=== PATIENT | male | born 1985 | race Two or more races ===

== ENCOUNTER 2017-08-01 09:22 | Emergency (ER) | payer MEDICAID ==
[~2017-08-01] VITALS: Ht 172.7 cm; Wt 100.0 kg
[2017-08-01 09:30] VITALS: BP 130/74
[2017-08-01] MEDS ORDERED: COLC0.6T69 PO (09:45)
[2017-08-01] MEDS ORDERED: triamcinolone acetonide 40mg/ml inj IM ONE (09:45)
== END 2017-08-01 10:05 | disposition home or self-care (01) ==
LOC: ER 09:22
DX: M25.572 Pain in left ankle and joints of left foot (principal)
CPT/HCPCS: 96372; 99283; J3301

== ENCOUNTER 2017-09-10 05:06 | Emergency (ER) | payer MEDICAID ==
[~2017-09-10] VITALS: Ht 172.7 cm; Wt 122.4 kg
[~2017-09-10 05:06] MED LIST: COLC0.6T69 PO
[2017-09-10 05:08] VITALS: BP 144/92
[2017-09-10] MEDS ORDERED: ibuprofen tablet 400 MG TABLET PO ONE (05:20)
[2017-09-10] MEDS ORDERED: IBUP-1984 PO (05:49)
== END 2017-09-10 06:11 | disposition home or self-care (01) ==
LOC: ER 05:06
DX: M77.32 Calcaneal spur, left foot (principal)
CPT/HCPCS: 73630; 99284

== ENCOUNTER 2018-12-19 14:11 | Emergency (ER) | payer MEDICAID ==
[~2018-12-19] VITALS: Ht 172.7 cm; Wt 125.7 kg
[~2018-12-19 14:11] MED LIST changes: +LIDOcaine 1% W/epiNEPHrine 1:100,000 20ml vial ONE
[2018-12-19] MEDS ORDERED: DOXYCYCLINE 100MG CAPSULE PO STA (14:49)
[2018-12-19] MEDS ORDERED: TETanus/Pertussis (Acell)/Diphther VAC/PF (Tdap-Adult) 0.5ml syringe IM ONE (14:50)
[2018-12-19] MEDS ORDERED: fluconazole 100mg tablet PO ONE (14:50)
[2018-12-19] MEDS ORDERED: HYDROcodone/acetaminophen 5mg/325mg tablet PO ONE (14:50)
[2018-12-19] MEDS ORDERED: cephalexin 250mg capsule PO ONE (14:50)
[2018-12-19] MEDS ORDERED: ondansetron 4mg rapidly disintigrating tab PO ONE (14:50)
[2018-12-19] MEDS ORDERED: CEPH250T PO (15:29)
[2018-12-19] MEDS ORDERED: FLUC200T PO (15:29)
[2018-12-19] MEDS ORDERED: ONDA8TAB6 PO (15:29)
[2018-12-19] MEDS ORDERED: DOXY100C43 PO (15:29)
[2018-12-19] MEDS ORDERED: bacitracin 15gm ointment TP ONE (15:35)
[2018-12-19 15:54] VITALS: BP 146/77
== END 2018-12-19 15:56 | disposition home or self-care (01) ==
LOC: ER 14:11
DX: L02.211 Cutaneous abscess of abdominal wall (principal); M10.9 Gout, unspecified; Z79.1 Long term (current) use of non-steroidal anti-inflammatories (NSAID); Z79.899 Other long term (current) drug therapy
CPT/HCPCS: 10060; 90471; 90715; 99284; J2405

== ENCOUNTER 2019-06-17 12:44 | Emergency (ER) | payer MEDICAID, OTHER ==
[~2019-06-17] VITALS: Ht 172.7 cm; Wt 126.0 kg
[~2019-06-17 12:44] MED LIST changes: +FLUC200T PO; -LIDOcaine 1% W/epiNEPHrine 1:100,000 20ml vial ONE; +ONDA8TAB6 PO
[2019-06-17 12:55] VITALS: BP 150/88
[2019-06-17 13:28] LABS: CLARITY,URINE CLOUDY (Clear); COLOR,URINE YELLOW (Yellow); GLUCOSE, URINE NEGATIVE (Neg); KETONES,URINE NEGATIVE (Neg); LEUKOCYTE ESTERASE ,URINE LARGE (Neg); NITRITES, URINE NEGATIVE (Neg); OCCULT BLOOD,URINE LARGE (Neg); PROTEIN,URINE 30 mg/dl (Neg); UA COLLECTION TYPE CLN CATCH MIDSTREAM; UROBILINOGEN,URINE 0.2 E.U/dL (0.2-1.0)
[2019-06-17 13:33] LABS: MUCUS STRANDS FEW /LPF (Neg); SQUAMOUS EPITHELIAL CELL,UR FEW /LPF (FEW)
[2019-06-17 13:34] LABS: BACTERIA,URINE 2+ /HPF (Neg); WBC CLUMPS,URINE MANY /HPF (NEGATIVE); WBC,URINE TNTC /HPF (0-4)
[2019-06-17 14:28] LABS: BASOPHILS % (AUTO) 0.2 % (0-1); EOSINOPHILS # (AUTO) 0.2 X10'3 (0-0.9); EOSINOPHILS % (AUTO) 1.6 % (0-6); HEMATOCRIT 42.2 % (42.0-52.0); LYMPHOCYTES # (AUTO) 1.6 X10'3 (1.1-4.8); LYMPHOCYTES % (AUTO) 14.5 % (21-51); MEAN CORPUSCULAR HEMOGLOBIN 28.6 PG (27.0-31.0); MEAN CORPUSCULAR HGB CONC 33.3 g/dL (33.0-36.5); MEAN CORPUSCULAR VOLUME 85.7 FL (78-98); MEAN PLATELET VOLUME 7.5 FL (7.4-10.4); MONOCYTES # (AUTO) 0.9 X10'3 (0-0.9); NEUTROPHILS # (AUTO) 8.6 X10'3 (1.8-7.7); NEUTROPHILS % (AUTO) 75.7 % (42-75); PLATELET COUNT 200 X10'3 (140-440); RED BLOOD COUNT 4.92 X10'6 (4.70-6.10); RED CELL DISTRIBUTION WIDTH 13.2 % (11.5-14.5); WHITE BLOOD COUNT 11.3 X10'3 (4.5-11.0)
[2019-06-17 14:43] LABS: ALANINE AMINOTRANSFERASE 23 U/L (12-78); ALBUMIN 3.8 G/DL (3.4-5.0); ALKALINE PHOSPHATASE 74 IU/L (46-116); ANION GAP 6 (8-16); ASPARTATE AMINO TRANSFERASE 17 U/L (10-37); BILIRUBIN,TOTAL 0.8 MG/DL (0.1-1.0); BLOOD UREA NITROGEN 8 MG/DL (7-18); CALCIUM 8.6 MG/DL (8.5-10.1); CHLORIDE 102 MMOL/L (99-107); GLUCOSE 96 MG/DL (70-104); POTASSIUM 3.8 MMOL/L (3.5-5.1); SODIUM 136 MMOL/L (135-145); TOTAL CARBON DIOXIDE 28.2 MMOL/L (24-32); TOTAL PROTEIN 7.7 G/DL (6.4-8.2); eGFR > 90 ML/MIN
[2019-06-17] MEDS ORDERED: PHEN-824 PO (15:07)
[2019-06-17] MEDS ORDERED: CEPH500C5 PO (15:07)
== END 2019-06-17 15:25 | disposition home or self-care (01) ==
LOC: ER 12:44
DX: N39.0 Urinary tract infection, site not specified (principal); R31.9 Hematuria, unspecified; R11.2 Nausea with vomiting, unspecified; Z79.2 Long term (current) use of antibiotics; Z79.899 Other long term (current) drug therapy
CPT/HCPCS: 36415; 74176; 80053; 81001; 85025; 87088; 99284

== ENCOUNTER 2021-11-14 11:57 | Emergency (ER) | payer MEDICAID ==
[~2021-11-14] VITALS: Ht 172.7 cm; Wt 110.0 kg
[~2021-11-14 11:57] MED LIST changes: -COLC0.6T69 PO; +COLC0.6T72 PO; +PHEN-824 PO
[2021-11-14 12:01] VITALS: BP 169/103
[2021-11-14] MEDS ORDERED: amox tr/potassium clavulanate 875/125mg TAB PO ONE (13:15)
[2021-11-14] MEDS ORDERED: AMOX-117 PO (13:29)
== END 2021-11-14 14:49 | disposition home or self-care (01) ==
LOC: ER 11:59
DX: K08.89 Other specified disorders of teeth and supporting structures (principal)
CPT/HCPCS: 99283

== ENCOUNTER 2022-08-15 03:40 | Emergency (ER) | payer MEDICAID ==
[~2022-08-15] VITALS: Ht 172.7 cm; Wt 100.0 kg
[2022-08-15] MEDS ORDERED: AMOX500C2 PO (10:42)
[2022-08-15] MEDS ORDERED: ALBU8HFA PO (10:43)
[2022-08-15] MEDS ORDERED: amoxicillin 250mg capsule PO ONE (10:45)
[2022-08-15 11:09] VITALS: BP 134/83
== END 2022-08-15 11:12 | disposition home or self-care (01) ==
LOC: ER 03:41
DX: J18.9 Pneumonia, unspecified organism (principal); Z20.822 Contact with and (suspected) exposure to COVID-19; M10.9 Gout, unspecified; Z79.899 Other long term (current) drug therapy
CPT/HCPCS: 71046; 87081; 87502; 87503; 87811; 87880; 93005; 99285

== ENCOUNTER 2022-09-05 07:06 | Inpatient (IN) | payer MEDICAID ==
[~2022-09-05] VITALS: Ht 172.7 cm; Wt 152.4 kg
[~2022-09-05 07:06] MED LIST changes: +ALBU8HFA PO
[2022-09-05] MEDS ORDERED: ipratropium/albuterol 3ml nebule NEB ONE (07:45)
[2022-09-05] MEDS ORDERED: albuterol 2.5 MG/3 ML nebule NEB ONE (07:45)
--- NOTE | 2022-09-05 07:49 | NUR ---
LUCÍA MORILLO PAGE RT FOR RT TX.
[2022-09-05 08:14] LABS: ABG BASE EXCESS 0.5 mmol/L (-2.0-2.0); ABG HCO3 24.7 mmol/L (22.0-26.0); ABG OXYGEN SATURATION 93.8 % (94-97); ABG PCO2 (T) 37.7 mmHg (35.0-48.0); ABG PO2 (T) 70.8 mmHg (75.0-100.0); ALLEN'S TEST POSITIVE; FCOHb 0.8 % (0.0-3.9); FMetHb 0.2 % (0.0-1.5); FO2Hb 92.9 % (94-97); PATIENT TEMPERATURE 36.7; TOTAL HEMOGLOBIN 12.8 G/dl (14.0-17.9)
[2022-09-05 08:16] LABS: BASOPHILS % (AUTO) 0.3 % (0-1); EOSINOPHILS # (AUTO) 0.2 X10'3 (0-0.9); EOSINOPHILS % (AUTO) 3.1 % (0-6); HEMATOCRIT 36.8 % (42.0-52.0); LYMPHOCYTES # (AUTO) 1.5 X10'3 (1.1-4.8); LYMPHOCYTES % (AUTO) 22.9 % (21-51); MEAN CORPUSCULAR HGB CONC 32.7 g/dL (33.0-36.5); MEAN CORPUSCULAR VOLUME 88.8 FL (78-98); MEAN PLATELET VOLUME 8.1 FL (7.4-10.4); MONOCYTES # (AUTO) 0.5 X10'3 (0-0.9); MONOCYTES % (AUTO) 8.2 % (2-12); NEUTROPHILS # (AUTO) 4.3 X10'3 (1.8-7.7); NEUTROPHILS % (AUTO) 65.5 % (42-75); PLATELET COUNT 220 X10'3 (140-440); RED BLOOD COUNT 4.14 X10'6 (4.70-6.10); RED CELL DISTRIBUTION WIDTH 14.9 % (11.5-14.5); WHITE BLOOD COUNT 6.6 X10'3 (4.5-11.0)
[2022-09-05 08:25] LABS: ALANINE AMINOTRANSFERASE 55 U/L (12-78); ALKALINE PHOSPHATASE 81 IU/L (46-116); ANION GAP 8 (8-16); ASPARTATE AMINO TRANSFERASE 58 U/L (10-37); BILIRUBIN,TOTAL 1.1 MG/DL (0.1-1.0); BLOOD UREA NITROGEN 8 MG/DL (7-18); BUN/CREATININE RATIO 6.7 (10.0-20.0); CALCIUM 8.6 MG/DL (8.5-10.1); CHLORIDE 102 MMOL/L (99-107); CREATININE 1.19 MG/DL (0.60-1.10); GLUCOSE 167 MG/DL (70-104); POTASSIUM 3.9 MMOL/L (3.5-5.1); SODIUM 138 MMOL/L (135-145); TOTAL CARBON DIOXIDE 27.8 MMOL/L (24-32); TOTAL PROTEIN 5.9 G/DL (6.4-8.2); eGFR 83 ML/MIN
[2022-09-05] MEDS ORDERED: furosemide 10 MG/1 ML 10ml inj IV ONE ×2 (08:25→20:00)
--- NOTE | 2022-09-05 08:36 | NUR ---
LAB NOTIFIED RN THAT TROP ARE 224. RN NOTIFIED DR ABDI. NO ORDS RECD.
--- NOTE | 2022-09-05 09:23 | NUR ---
RN NOTIFIED DR ABDI THAT LAB REPORTED TROP INCREASED TO 240
[2022-09-05] MEDS ORDERED: magnesium 2GM in 50ml NS 50 ML IV PRN ×2 (10:10→10:15)
[2022-09-05] MEDS ORDERED: potassium Cl 40MEQ/1/2NS 520ml 520 ML IV PRN ×2 (10:10→10:15)
[2022-09-05] MEDS ORDERED: magnesium 4gm in 100ml NS 100 ML IV PRN ×2 (10:10→10:15)
[2022-09-05] MEDS ORDERED: potassium Cl 20 mEq SR tablet PO PRN ×4 (10:10→10:15)
[2022-09-05] MEDS ORDERED: magnesium Cl slow-release 64mg tablet PO PRN ×2 (10:10→10:15)
[2022-09-05] MEDS ORDERED: acetaminophen 325mg tablet PO PRN (10:15)
[2022-09-05] MEDS ORDERED: ondansetron/PF 4mg/2ml inj IV PRN (10:15)
--- NOTE | 2022-09-05 10:36 | NUR ---
RN NOTIFIED DR ABDI THAT TROP ARE NOW 270
--- NOTE | 2022-09-05 11:41 | NUR ---
rn collected urine and sent it lab.
--- NOTE | 2022-09-05 12:12 | NUR ---
RN CALLED PT SPOUSE FOR HIM AND PROVIDED HIM A PHONE.
[2022-09-05 12:15] LABS: URINE AMPHETAMINE SCREEN NEGATIVE (Neg); URINE BARBITUATE SCREEN NEGATIVE (Neg); URINE BENZODIAZEPINES SCREEN NEGATIVE (Neg); URINE CANNABINOID SCREEN POSITIVE (Neg); URINE COCAINE SCREEN NEGATIVE (Neg); URINE METHADONE SCREEN NEGATIVE (Neg); URINE OPIATE SCREEN NEGATIVE (Neg); URINE PHENCYCLIDINE SCREEN NEGATIVE (Neg)
[2022-09-05] MEDS ORDERED: PERFLUTREN PROTEIN-A MICROSPHR (Optison) 0.22 MG/ML 3ML VIAL IV ONE (13:40)
[2022-09-05] MEDS ORDERED: furosemide 40mg/4ml inj IV ONE (14:00)
[2022-09-05 15:00] VITALS: BP 126/66
[2022-09-05 18:00] VITALS: BP 123/89
--- NOTE | 2022-09-05 18:04 | NUR ---
Problems reprioritized. Patient report given, questions answered & plan of care reviewed with CARLOS EDUARDO Diego.
[2022-09-05] MEDS ORDERED: ASCO500C17 PO (18:29)
[2022-09-05] MEDS ORDERED: ALBU1POW2 IH (18:29)
[2022-09-05] MEDS ORDERED: ZINC100T2 PO (18:30)
[2022-09-05 18:56] LABS: D-DIMER 0.45 MG/L FEU (0-0.50)
[2022-09-05] MEDS: heparin, porcine 5000 units/ml vial SQ SCH (19:51)
[2022-09-05] MEDS: carvedilol 6.25mg tablet PO SCH (19:51)
[2022-09-05] MEDS: K and/or MAG REPLACEMENT MC SCH ×2 (20:00)
[2022-09-05 22:00] VITALS: BP 140/93
[2022-09-06 02:00] VITALS: BP 140/85
--- NOTE | 2022-09-06 02:39 | NUR ---
INSTRUMENTS SALES REPRESENTATIVE documentation: I have reviewed and agree with all interventions, assessments performed and documented by Brandie THIBODEAUX.
[2022-09-06 06:00] VITALS: BP 157/107
[2022-09-06] MEDS: carvedilol 6.25mg tablet PO SCH ×2 (07:08→20:08)
[2022-09-06] MEDS: heparin, porcine 5000 units/ml vial SQ SCH ×2 (07:11→20:08)
[2022-09-06 08:00] LABS: BASOPHILS % (AUTO) 0.6 % (0-1); EOSINOPHILS # (AUTO) 0.3 X10'3 (0-0.9); HEMATOCRIT 39.9 % (42.0-52.0); HEMOGLOBIN 13.1 g/dl (14.0-17.9); LYMPHOCYTES # (AUTO) 1.5 X10'3 (1.1-4.8); MEAN CORPUSCULAR HGB CONC 32.8 g/dL (33.0-36.5); MEAN CORPUSCULAR VOLUME 88.6 FL (78-98); MEAN PLATELET VOLUME 8.8 FL (7.4-10.4); MONOCYTES # (AUTO) 0.5 X10'3 (0-0.9); MONOCYTES % (AUTO) 7.4 % (2-12); NEUTROPHILS # (AUTO) 4.5 X10'3 (1.8-7.7); PLATELET COUNT 232 X10'3 (140-440); RED BLOOD COUNT 4.51 X10'6 (4.70-6.10); RED CELL DISTRIBUTION WIDTH 14.7 % (11.5-14.5); WHITE BLOOD COUNT 6.8 X10'3 (4.5-11.0)
[2022-09-06] MEDS: K and/or MAG REPLACEMENT MC SCH ×4 (08:00→20:19)
--- NOTE | 2022-09-06 08:00 | NUR ---
Paged Page Sent PAGER ID: [phone] MESSAGE: [id number]- Kristine Pt has SOB, inspiratory wheezing, &bilat lower base crackles. SPO2 94%. Pt reported he breathed much better after Lasix administration. EF 20%. Annika SUPERVISOR LIVESTOCK YARD recommended diuresis. Would you consider scheduled Lasix? Simon LAIN
[2022-09-06 08:09] LABS: ALBUMIN 3.2 G/DL (3.4-5.0); ANION GAP 13 (8-16); BLOOD UREA NITROGEN 15 MG/DL (7-18); BUN/CREATININE RATIO 12.7 (10.0-20.0); CHLORIDE 102 MMOL/L (99-107); CHOL/HDL RATIO 3.2 (0.00-4.99); CHOLESTEROL 123 MG/DL (0-200); CREATININE 1.18 MG/DL (0.60-1.10); GLUCOSE 112 MG/DL (70-104); HDL CHOLESTEROL 39 MG/DL (35-60); LDL CHOLESTEROL 79 MG/DL (50-100); MAGNESIUM 2.1 MG/DL (1.5-2.4); SODIUM 140 MMOL/L (135-145); TOTAL CARBON DIOXIDE 25.3 MMOL/L (24-32); TRIGLYCERIDES 56 MG/DL (20-135); eGFR 84 ML/MIN
[2022-09-06] MEDS: furosemide 40mg/4ml inj IV SCH ×2 (10:36→19:52)
[2022-09-06 11:00] VITALS: BP 140/104
[2022-09-06] MEDS ORDERED: lisinopril 5mg tablet PO SCH (11:25)
[2022-09-06] MEDS: sacubitril/valsartan 24mg-26mg tablet PO SCH ×2 (12:57→20:07)
[2022-09-06] MEDS: levalbuterol 0.63mg/3ml nebule IH SCH ×2 (14:36→20:12)
--- NOTE | 2022-09-06 14:57 | NUR ---
OFFICE MACHINES TEACHER documentation: I have reviewed and agree with all interventions, assessments performed and documented by JADEN BAIRD LVN.
[2022-09-06 15:00] VITALS: BP 130/88
--- NOTE | 2022-09-06 15:49 | NUR ---
Paged Page Sent PAGER ID: [phone] MESSAGE: [id number]- [email or web address]. Pt has a family emergency and would like to go home. Dr. Timmons came and assessed patient. Pt asked if there is any chance he can be discharged ANTONIO? Thanks. Simon Parham LVN
--- NOTE | 2022-09-06 16:01 | NUR ---
Dr. Chan advised contract technical writer, pt is not cleared to be sent home and if he desires to leave, he will need to leave AMA. Blood Bank Laboratory Professional informed patient. He stated he will be thinking and will let contract technical writer know. Blood Bank Laboratory Professional will follow up.
[2022-09-06 18:00] VITALS: BP 141/95
--- NOTE | 2022-09-06 18:26 | NUR ---
Problems reprioritized. Patient report given, questions answered & plan of care reviewed with Janelle THIBODEAUX.
[2022-09-06] MEDS: methylPREDNISolone sod succ/PF 40mg inj. IV SCH (19:52)
[2022-09-06 22:00] VITALS: BP 122/54
--- NOTE | 2022-09-07 01:41 | NUR ---
Agree with Brandie THIBODEAUX except where I documented my findings.
[2022-09-07 02:00] VITALS: BP 107/74
[2022-09-07] MEDS: levalbuterol 0.63mg/3ml nebule IH SCH ×2 (02:30→08:22)
[2022-09-07 06:00] VITALS: BP 111/92
[2022-09-07 06:27] LABS: ALBUMIN 3.4 G/DL (3.4-5.0); ANION GAP 10 (8-16); BASOPHILS % (AUTO) 0.4 % (0-1); BLOOD UREA NITROGEN 21 MG/DL (7-18); BUN/CREATININE RATIO 20.8 (10.0-20.0); CALCIUM 8.8 MG/DL (8.5-10.1); CHLORIDE 102 MMOL/L (99-107); CREATININE 1.01 MG/DL (0.60-1.10); EOSINOPHILS % (AUTO) 0 % (0-6); GLUCOSE 157 MG/DL (70-104); HEMATOCRIT 44.9 % (42.0-52.0); HEMOGLOBIN 14.5 g/dl (14.0-17.9); LYMPHOCYTES # (AUTO) 0.5 X10'3 (1.1-4.8); MAGNESIUM 2.1 MG/DL (1.5-2.4); MEAN CORPUSCULAR HEMOGLOBIN 28.7 PG (27.0-31.0); MEAN CORPUSCULAR HGB CONC 32.3 g/dL (33.0-36.5); MEAN CORPUSCULAR VOLUME 88.8 FL (78-98); MEAN PLATELET VOLUME 9.1 FL (7.4-10.4); MONOCYTES # (AUTO) 0.2 X10'3 (0-0.9); MONOCYTES % (AUTO) 3.9 % (2-12); NEUTROPHILS # (AUTO) 4.6 X10'3 (1.8-7.7); NEUTROPHILS % (AUTO) 85.7 % (42-75); PLATELET COUNT 292 X10'3 (140-440); POTASSIUM 4.7 MMOL/L (3.5-5.1); RED BLOOD COUNT 5.05 X10'6 (4.70-6.10); RED CELL DISTRIBUTION WIDTH 14.8 % (11.5-14.5); SODIUM 134 MMOL/L (135-145); TOTAL CARBON DIOXIDE 22.3 MMOL/L (24-32); WHITE BLOOD COUNT 5.4 X10'3 (4.5-11.0); eGFR > 90 ML/MIN
--- NOTE | 2022-09-07 06:30 | NUR ---
Patient in room PCU 3012. I have received report from Janelle THIBODEAUX and had the opportunity to ask questions and assume patient care.
[2022-09-07] MEDS: sacubitril/valsartan 24mg-26mg tablet PO SCH (07:30)
[2022-09-07] MEDS: carvedilol 6.25mg tablet PO SCH (07:30)
[2022-09-07] MEDS: heparin, porcine 5000 units/ml vial SQ SCH (07:34)
[2022-09-07] MEDS: K and/or MAG REPLACEMENT MC SCH ×2 (07:51→07:52)
[2022-09-07] MEDS ORDERED: spironolactone 25 MG tablet PO SCH (08:30)
[2022-09-07 08:42] VITALS: BP_SYST 111
[2022-09-07] MEDS: methylPREDNISolone sod succ/PF 40mg inj. IV SCH (09:08)
[2022-09-07] MEDS: furosemide 40mg/4ml inj IV SCH (09:08)
--- NOTE | 2022-09-07 09:20 | NUR ---
Pt was observed heading toward elevators. Motor Mechanic inquired if patient was leaving. Pt stated he has a family emergency and he needs to leave. Motor Mechanic reinforced from yesterday's instruction, Pt will be leaving AMA. He verbalized understanding. Pt PIV discontinued. Pt left telebox on bed. Pt initially refused to sign paperwork. Pt educated on written instruction on AMA form. Pt refused to sign paperwork. RN and GRANULATING MACHINE OPERATOR provided witness signature on AMA form. Pt was encouraged to follow up with PCP. He verbalized understanding. Addendum: 09/07/22 at 1017 by Simon Parham LVN Late entry: was paged at 0922hrs
== END 2022-09-07 09:22 | disposition left against medical advice (07) | DRG 140 ==
LOC: ER 07:07 → ED HOLD 10:12 → PCU 3S 14:42
PROVIDERS: ADMIT Internal Medicine; ATTEND Internal Medicine
DX: J44.1 Chronic obstructive pulmonary disease with (acute) exacerbation (principal); I50.23 Acute on chronic systolic (congestive) heart failure; I21.A1 Myocardial infarction type 2; I42.0 Dilated cardiomyopathy; I42.6 Alcoholic cardiomyopathy; F12.90 Cannabis use, unspecified, uncomplicated; M10.9 Gout, unspecified; Z53.29 Procedure and treatment not carried out because of patient's decision for other reasons; Z80.7 Family history of other malignant neoplasms of lymphoid, hematopoietic and related tissues; Z79.899 Other long term (current) drug therapy
CPT/HCPCS: 36415; 36600; 71045; 80048; 80053; 80061; 80305; 82803; 83735; 83880; 84145; 84484; 85018; 85025; 85379; 93306; 94640; 94760; 99285; G0378; J1644; J1940; J2920; J7614

== ENCOUNTER 2022-09-25 21:56 | Inpatient (IN) | payer MEDICAID ==
[~2022-09-25] VITALS: Ht 175.3 cm; Wt 109.1 kg
[~2022-09-25 21:56] MED LIST changes: +ALBU1POW2 IH; -ALBU8HFA PO; +ASCO500C17 PO; -COLC0.6T72 PO; -FLUC200T PO; -ONDA8TAB6 PO; -PHEN-824 PO; +ZINC100T2 PO
[2022-09-25 22:20] LABS: BASOPHILS % (AUTO) 0.6 % (0-1); EOSINOPHILS # (AUTO) 0.2 X10'3 (0-0.9); EOSINOPHILS % (AUTO) 3.1 % (0-6); HEMATOCRIT 38.7 % (42.0-52.0); HEMOGLOBIN 12.6 g/dl (14.0-17.9); LYMPHOCYTES # (AUTO) 1.8 X10'3 (1.1-4.8); LYMPHOCYTES % (AUTO) 25.5 % (21-51); MEAN CORPUSCULAR HEMOGLOBIN 28.5 PG (27.0-31.0); MEAN CORPUSCULAR HGB CONC 32.7 g/dL (33.0-36.5); MEAN CORPUSCULAR VOLUME 87.2 FL (78-98); MEAN PLATELET VOLUME 8.2 FL (7.4-10.4); MONOCYTES # (AUTO) 0.5 X10'3 (0-0.9); MONOCYTES % (AUTO) 7.2 % (2-12); NEUTROPHILS # (AUTO) 4.5 X10'3 (1.8-7.7); NEUTROPHILS % (AUTO) 63.6 % (42-75); PLATELET COUNT 223 X10'3 (140-440); RED BLOOD COUNT 4.44 X10'6 (4.70-6.10); RED CELL DISTRIBUTION WIDTH 14.9 % (11.5-14.5)
[2022-09-25 22:33] LABS: ALANINE AMINOTRANSFERASE 40 U/L (12-78); ALBUMIN 3.3 G/DL (3.4-5.0); ALBUMIN/GLOBULIN RATIO 1.2 (1.1-1.5); ALKALINE PHOSPHATASE 70 IU/L (46-116); ANION GAP 4 (8-16); ASPARTATE AMINO TRANSFERASE 31 U/L (10-37); BILIRUBIN,TOTAL 1.3 MG/DL (0.1-1.0); BLOOD UREA NITROGEN 16 MG/DL (7-18); CALCIUM 8.7 MG/DL (8.5-10.1); CHLORIDE 105 MMOL/L (99-107); CREATININE 1.33 MG/DL (0.60-1.10); GLUCOSE 179 MG/DL (70-104); POTASSIUM 3.8 MMOL/L (3.5-5.1); SODIUM 140 MMOL/L (135-145); TOTAL CARBON DIOXIDE 31.3 MMOL/L (24-32); eGFR 73 ML/MIN
[2022-09-26] MEDS ORDERED: furosemide 10 MG/1 ML 10ml inj IV ONE (00:35)
[2022-09-26] MEDS ORDERED: potassium Cl 40MEQ/1/2NS 520ml 520 ML IV PRN (04:15)
[2022-09-26] MEDS ORDERED: magnesium 2GM in 50ml NS 50 ML IV PRN (04:15)
[2022-09-26] MEDS ORDERED: magnesium Cl slow-release 64mg tablet PO PRN (04:15)
[2022-09-26] MEDS ORDERED: mag hydrox/Alum hydrox/simeth 30ml oral suspension PO PRN (04:15)
[2022-09-26] MEDS ORDERED: magnesium 4gm in 100ml NS 100 ML IV PRN (04:15)
[2022-09-26] MEDS ORDERED: acetaminophen 325mg tablet PO PRN (04:15)
[2022-09-26] MEDS ORDERED: ondansetron/PF 4mg/2ml inj IV PRN (04:15)
[2022-09-26] MEDS ORDERED: magnesium hydroxide 30ml (MOM) UD suspension PO PRN (04:15)
[2022-09-26] MEDS ORDERED: potassium Cl 20 mEq SR tablet PO PRN ×2 (04:15)
[2022-09-26] MEDS: K and/or MAG REPLACEMENT MC SCH ×2 (08:00→20:00)
[2022-09-26] MEDS: sacubitril/valsartan 24mg-26mg tablet PO SCH ×2 (08:00→20:12)
[2022-09-26] MEDS: heparin, porcine 5000 units/ml vial SQ SCH ×2 (08:00→20:00)
[2022-09-26 08:27] LABS: POTASSIUM 3.9 MMOL/L (3.5-5.1)
[2022-09-26] MEDS: docusate sod 100mg capsule PO SCH ×2 (09:26→20:00)
[2022-09-26] MEDS: carvedilol 6.25mg tablet PO SCH ×2 (09:26→20:13)
[2022-09-26] MEDS: furosemide 10 MG/1 ML 10ml inj IV SCH ×2 (09:26→20:14)
[2022-09-26 12:35] VITALS: BP 131/82
[2022-09-26 15:00] VITALS: BP 131/77
[2022-09-26 18:30] VITALS: BP 156/90
[2022-09-26 22:00] VITALS: BP 129/75
[2022-09-27 02:00] VITALS: BP 125/82
--- NOTE | 2022-09-27 06:19 | NUR ---
Problems reprioritized. Patient report given, questions answered & plan of care reviewed with Rashmi CASTREJON.
--- NOTE | 2022-09-27 06:25 | NUR ---
Patient in room PCU 3019. I have received report from CHRISTEN CASTREJON and had the opportunity to ask questions and assume patient care.
[2022-09-27 07:16] VITALS: BP 104/72
[2022-09-27 07:40] LABS: BASOPHILS % (AUTO) 0.4 % (0-1); EOSINOPHILS # (AUTO) 0.3 X10'3 (0-0.9); EOSINOPHILS % (AUTO) 4.7 % (0-6); HEMATOCRIT 40.9 % (42.0-52.0); HEMOGLOBIN 13.4 g/dl (14.0-17.9); LYMPHOCYTES # (AUTO) 1.3 X10'3 (1.1-4.8); MEAN CORPUSCULAR HEMOGLOBIN 28.4 PG (27.0-31.0); MEAN CORPUSCULAR HGB CONC 32.8 g/dL (33.0-36.5); MEAN CORPUSCULAR VOLUME 86.7 FL (78-98); MEAN PLATELET VOLUME 8.6 FL (7.4-10.4); MONOCYTES # (AUTO) 0.5 X10'3 (0-0.9); MONOCYTES % (AUTO) 9.4 % (2-12); NEUTROPHILS # (AUTO) 3.6 X10'3 (1.8-7.7); NEUTROPHILS % (AUTO) 62.5 % (42-75); PLATELET COUNT 236 X10'3 (140-440); RED BLOOD COUNT 4.71 X10'6 (4.70-6.10); RED CELL DISTRIBUTION WIDTH 14.7 % (11.5-14.5); WHITE BLOOD COUNT 5.7 X10'3 (4.5-11.0)
[2022-09-27] MEDS: K and/or MAG REPLACEMENT MC SCH (08:00)
[2022-09-27] MEDS: heparin, porcine 5000 units/ml vial SQ SCH (08:00)
[2022-09-27] MEDS: carvedilol 6.25mg tablet PO SCH (08:00)
[2022-09-27] MEDS: docusate sod 100mg capsule PO SCH (08:00)
[2022-09-27 08:38] LABS: ALANINE AMINOTRANSFERASE 41 U/L (12-78); ALBUMIN/GLOBULIN RATIO 1.2 (1.1-1.5); ALKALINE PHOSPHATASE 70 IU/L (46-116); ANION GAP 6 (8-16); ASPARTATE AMINO TRANSFERASE 24 U/L (10-37); BILIRUBIN,TOTAL 1.3 MG/DL (0.1-1.0); BLOOD UREA NITROGEN 14 MG/DL (7-18); BUN/CREATININE RATIO 12.8 (10.0-20.0); CALCIUM 8.6 MG/DL (8.5-10.1); CHLORIDE 105 MMOL/L (99-107); CREATININE 1.09 MG/DL (0.60-1.10); GLUCOSE 126 MG/DL (70-104); POTASSIUM 4.3 MMOL/L (3.5-5.1); SODIUM 141 MMOL/L (135-145); TOTAL CARBON DIOXIDE 29.9 MMOL/L (24-32); TOTAL PROTEIN 5.6 G/DL (6.4-8.2); eGFR > 90 ML/MIN
[2022-09-27] MEDS: sacubitril/valsartan 24mg-26mg tablet PO SCH (08:44)
[2022-09-27] MEDS: furosemide 10 MG/1 ML 10ml inj IV SCH (08:44)
--- NOTE | 2022-09-27 09:05 | NUR ---
pt refused coreg, states that it makes him feel "really bad' causing what feels like heart palpitations. made pt aware HR was 110 and med would help decrease hr. pt cont to refuse. made aware.
[2022-09-27 10:27] LABS: URINE AMPHETAMINE SCREEN NEGATIVE (Neg); URINE BARBITUATE SCREEN NEGATIVE (Neg); URINE BENZODIAZEPINES SCREEN NEGATIVE (Neg); URINE CANNABINOID SCREEN POSITIVE (Neg); URINE COCAINE SCREEN NEGATIVE (Neg); URINE METHADONE SCREEN NEGATIVE (Neg); URINE OPIATE SCREEN NEGATIVE (Neg); URINE PHENCYCLIDINE SCREEN NEGATIVE (Neg)
[2022-09-27 11:35] VITALS: BP 107/70
[2022-09-27] MEDS ORDERED: SACU1TAB PO (12:05)
[2022-09-27] MEDS ORDERED: CARV6.253 PO (12:05)
[2022-09-27] MEDS ORDERED: SPIR25TA PO (12:05)
[2022-09-27] MEDS ORDERED: FURO-150 PO (12:06)
[2022-09-27] MEDS ORDERED: POTA-206 PO (12:07)
--- NOTE | 2022-09-27 12:12 | NUR ---
PAGED DR KHAN RE: PAGER ID: [phone] MESSAGE: FAYE OROZCO. YAMILE KHAN CONSULTED AND STARTED PT ON JARDIANCE. DO YOU WANT TO ADD THAT TO HIS DC MEDS? SAMIR [id number]
[2022-09-27] MEDS ORDERED: EMPA10TA PO (12:24)
--- NOTE | 2022-09-27 13:14 | NUR ---
PT DISCHARGED IN STABLE CONDITION. IV DCd CANULA INTACT. FOLLOW UP INSTRUCTIONS GIVEN, ALL QUESTIONS ANSWERED. PT AWARE MEDICATION WAS SENT TO PHARMACY, HE STATES THAT HE HAS FOLLOW UP WITH PRIMARY CARE AND IS WORKING ON GETTING AN APPT WITH DR DIAMOND. DISCUSSED HH DIET AND NOT DRINKING ALCOHOL. PT STATES THAT HE HAS A SPONSOR AND IS IN [place]. ALL BELONGINGS IN HAND. Addendum: 09/27/22 at 1316 by Cyndy Harris RN Amended: Links added.
[2022-09-28] MEDS ORDERED: EMPAGLIFLOZIN 10 MG TABLET PO SCH (08:00)
[2022-09-28] MEDS ORDERED: spironolactone 25 MG tablet PO SCH (08:30)
== END 2022-09-27 14:01 | disposition home or self-care (01) | DRG 194 ==
LOC: ER 21:56 → ED HOLD 09-26 04:15 → PCU 3S 09-26 12:35
PROVIDERS: ADMIT Internal Medicine; ATTEND Internal Medicine
DX: I50.23 Acute on chronic systolic (congestive) heart failure (principal); I21.A1 Myocardial infarction type 2; I27.20 Pulmonary hypertension, unspecified; I42.0 Dilated cardiomyopathy; I50.82 Biventricular heart failure; F10.10 Alcohol abuse, uncomplicated; G47.33 Obstructive sleep apnea (adult) (pediatric); I42.7 Cardiomyopathy due to drug and external agent; M10.9 Gout, unspecified; Z80.7 Family history of other malignant neoplasms of lymphoid, hematopoietic and related tissues; Z79.899 Other long term (current) drug therapy
CPT/HCPCS: 36415; 71045; 80053; 80305; 83735; 83880; 84132; 84484; 85025; 87081; 93005; 99285; A4615; G0378; J1940